=== PATIENT | male | born 1960 | race African-American/Black ===

== ENCOUNTER 2016-11-26 08:29 | Emergency (ER) | payer OTHER ==
[~2016-11-26] VITALS: Ht 170.2 cm; Wt 75.5 kg
[2016-11-26 09:05] VITALS: Ht 170.2 cm; Wt 75.5 kg
[2016-11-26] MEDS ORDERED: SODI30SP2 NS (09:32)
[2016-11-26] MEDS ORDERED: HDRP454O TOP (09:32)
--- NOTE | 2016-11-26 09:34 | ERA ---
ER Documentation Chief Complaint Date/Time DATE: 11/26/16 TIME: 09:33 Chief Complaint INTERMITTENT EPISTAXIS X1 WEEK. DENIES TAKING BLOOD THINNERS. HPI Patient is a 56-year-old male with past medical history of hypertension, hyperlipidemia, gastritis who presents to the emergency department with intermittent epistaxis 1 week. Patient states his last episode of epistaxis was this morning. The bleeding lasted less than 1 minute. Patient has no bleeding currently. Patient states that the bleeding occurred after blowing his nose. Patient does report recent URI symptoms. Patient denies any blood thinner use. Patient denies any head trauma. Patient denies any headache, nausea, vomiting, dizziness, weakness or loss of consciousness. No history of coagulopathy. ROS All systems reviewed and are negative except as per history of present illness. Medications Home Meds Active Scripts Sodium Chloride (Saline Nasal Knapp) 30 Ml Knapp, 30 ML NS BID, #1 BOT Prov:THEE ARMAS PA-C 11/26/16 Hydrophilic Base* (Aquaphor*) 454 Gm-Topical Oint, 1 APPLIC TOP BID, #1 JAR Prov:THEE ARMAS PA-C 11/26/16 PMhx/Soc Medical and Surgical Hx: pt denies Surgical Hx History of Surgery: No Anesthesia Reaction: No Hx Neurological Disorder: No Hx Respiratory Disorders: No Hx Cardiac Disorders: Yes (HTN. HYPERLIPIDEMIA) Hx Psychiatric Problems: No Hx Miscellaneous Medical Probl: Yes (GASTRITIS) Hx Alcohol Use: No Hx Substance Use: No Hx Tobacco Use: No Smoking Status: Never smoker FmHx Family History: No diabetes Physical Exam Vitals Vital Signs Date Time Temp Pulse Resp B/P Pulse Ox O2 Delivery O2 Flow Rate FiO2 11/26/16 09:05 98.8 94 16 133/74 95 Physical Exam GENERAL: Well-developed, well-nourished male. Appears in no acute distress. HEAD: Normocephalic, atraumatic. No deformities or ecchymosis. EYE: Pupils equal, round, and reactive to light. EOMs intact. No conjunctival erythema. No conjunctival pallor. ENT: External ear without any masses or tenderness. Auditory canals clear bilaterally. TM visualized bilaterally, non-erythematous, non-bulging. Nasal mucosa pink with no discharge. Oropharynx is pink without any tonsillar erythema or exudates. No blood noted in the posterior pharynx. No uvula deviation. No kissing tonsils. Dried blood noted in the right nostril. No active bleeding. NECK: Supple. No meningismus. Normal ROM of the neck. LUNG: Clear to auscultation bilaterally. No rhonchi, wheezing, rales or coarse breath sounds. HEART: Regular rate and rhythm. No murmurs, rubs or gallops. BACK: No midline tenderness. EXTREMITES: Equal pulses bilaterally. No peripheral clubbing, cyanosis or edema. No unilateral leg swelling. NEUROLOGIC: Alert and oriented to person, place and time. Moving all four extremities. 5/5 strength in all extremities. Normal speech. Steady gait. SKIN: Normal color. Warm and dry. No rashes or lesions. Procedures/MDM MEDICAL DECISION MAKING: Patient is a 56-year-old male with past medical history of hypertension, hyperlipidemia and gastritis who presents emergency department with intermittent epistaxis 1 week. Patient's last episode was this morning which lasted less than 1 minute. No active bleeding at this time. Vital signs were reviewed. Patient is afebrile. Patient was not hypoxic. Patient was hemodynamically stable. At this time, the patient's presentation is most consistent with epistaxis of anterior source. Low suspicion for posterior epistaxis, septal hematoma, nasal fracture, coagulopathy disorder. PRESCRIPTION: Aquaphor, Nasal saline spray DISCHARGE: At this time, patient is stable for discharge and outpatient management. I have instructed the patient to follow-up with his/her primary care physician in 1-2 days. Patient may need to follow-up with the ENT specialist for continued bleeding and possible cautery procedure. I have instructed the patient to promptly return to the ER for any new or worsening symptoms including increased pain, fever, nausea, vomiting, weakness or LOC. The patient and/or family expressed understanding of and agreement with this plan. All questions were answered. Home care instructions were provided. Departure Diagnosis: Primary Impression: Epistaxis Condition: Stable Patient Instructions: Epistaxis (Adult) Referrals: CHRIS STEPHEN MD, VISHAL MD COHEN,CORBY MACK,ANTONIO ALMANZA MD, M.D., ALI R MD [facility] YOU HAVE RECEIVED A MEDICAL SCREENING EXAM AND THE RESULTS INDICATE THAT YOU DO NOT HAVE A CONDITION THAT REQUIRES URGENT TREATMENT IN THE EMERGENCY DEPARTMENT. FURTHER EVALUATION AND TREATMENT OF YOUR CONDITION CAN WAIT UNTIL YOU ARE SEEN IN YOUR DOCTORS OFFICE WITHIN THE NEXT 1-2 DAYS. IT IS YOUR RESPONSIBILITY TO MAKE AN APPOINTMENT FOR FOLOW-UP CARE. IF YOU HAVE A PRIMARY DOCTOR --you should call your primary doctor and schedule an appointment IF YOU DO NOT HAVE A PRIMARY DOCTOR YOU CAN CALL OUR PHYSICIAN REFERRAL HOTLINE AT IF YOU CAN NOT AFFORD TO SEE A PHYSICIAN YOU CAN CHOSE FROM THE FOLLOWING [facility] [address] [facility] [address] [facility] [address] [facility] [address] [facility] [address] [facility]. [facility] [address] [facility] [facility] YOU HAVE RECEIVED A MEDICAL SCREENING EXAM AND THE RESULTS INDICATE THAT YOU DO NOT HAVE A CONDITION THAT REQUIRES URGENT TREATMENT IN THE EMERGENCY DEPARTMENT. FURTHER EVALUATION AND TREATMENT OF YOUR CONDITION CAN WAIT UNTIL YOU ARE SEEN IN YOUR DOCTORS OFFICE WITHIN THE NEXT 1-2 DAYS. IT IS YOUR RESPONSIBILITY TO MAKE AN APPOINTMENT FOR FOLOW-UP CARE. IF YOU HAVE A PRIMARY DOCTOR --you should call your primary doctor and schedule and appointment IF YOU DO NOT HAVE A PRIMARY DOCTOR YOU CAN CALL OUR PHYSICIAN REFERRAL HOTLINE AT . IF YOU CAN NOT AFFORD TO SEE A PHYSICIAN YOU CAN CHOSE FROM THE FOLLOWING [facility] INSTITUTIONS: [facility] [address] [place] [address] [facility] [address] [place] [address] [facility] [address] [place] [address] Additional Instructions: Avoid blowing nose hard. Use aquaphor in nose. Patient may need to follow up with ENT specialist for cautery procedure if bleeding persists. Call your primary care doctor TOMORROW for an appointment during the next 1-2 days.See the doctor sooner or return here if your condition worsens before your appointment time. THEE ARMAS PA-C Nov 26, 2016 09:33
== END 2016-11-26 10:07 | disposition home or self-care (01) ==
LOC: FTE 08:29
DX: R04.0 Epistaxis (principal); I10 Essential (primary) hypertension
CPT/HCPCS: 99283

== ENCOUNTER 2018-09-05 05:51 | Day surgery (SDC) | END 2018-09-05 10:00 | disposition home or self-care (01) ==